=== PATIENT | male | born 1995 | race Caucasian/White ===

== ENCOUNTER 2018-10-17 18:42 | Emergency (ER) | payer OTHER ==
[~2018-10-17] VITALS: Ht 172.7 cm; Wt 92.5 kg
[2018-10-17 19:00] VITALS: Ht 172.7 cm; Wt 92.5 kg
[2018-10-17 21:00] VITALS: BP 131/82
== END 2018-10-17 21:00 | disposition home or self-care (01) ==
LOC: ED 18:42
DX: H92.01 Otalgia, right ear (principal); R20.2 Paresthesia of skin; M54.2 Cervicalgia; R03.0 Elevated blood-pressure reading, without diagnosis of hypertension